=== PATIENT | male | born 1975 | race Caucasian/White ===

== ENCOUNTER 2024-11-24 09:54 | Emergency (ER) | payer MEDICAID ==
[~2024-11-24] VITALS: Ht 175.3 cm; Wt 75.0 kg
[2024-11-24 09:58] VITALS: O2SAT 99
[2024-11-24 09:59] VITALS: BP 122/64; PULSE 67; RESP 18; TEMP 36.9; O2SAT 99
[2024-11-24] MEDS: ACETAMINOPHEN 325MG TABLET PO ONE (10:35)
== END 2024-11-24 11:41 | disposition home or self-care (01) ==
LOC: ER 09:54
DX: S39.012A Strain of muscle, fascia and tendon of lower back, initial encounter (principal); X58.XXXA Exposure to other specified factors, initial encounter; Y93.89 Activity, other specified; Y92.89 Other specified places as the place of occurrence of the external cause; Y99.8 Other external cause status
CPT/HCPCS: 72131; 99284